=== PATIENT | male | born 1960 | race Caucasian/White ===

== ENCOUNTER 2020-02-13 15:46 | Inpatient (IN) | payer MEDICAID, OTHER ==
[~2020-02-13] VITALS: Ht 175.3 cm; Wt 44.0 kg
--- NOTE | 2020-02-13 16:00 | NUR ---
BIB CARE FLIGHT TRANS FROM [place], CAEHCECTIC, FAILURE TO THRIVE, LOW BP, WOUNDS TO RIGHT ANTERIOR HIP AND RIGHT POSTERIOR HIP WITH WHAT LOOKS TO BE STOOL LIKE DRAINAGE. PT ORIENTED TO PERSON AND FOLLOWS COMMANDS, TEMP 92.4. POOR ORAL HYGENE, TEETH AND LIPS WITH DRIED BLOOD, ORAL CARE COMPLETED AND MOISTURE APPLIED. PT ABLE TO TAKE SMALL SIPS OF WATER. OOZING WOUNDS TO ANTERIOR RLQ ABD, AND POSTERIOR HIP. BOTH WOUNDS ARE FULL THICKNESS AND APPEAR TO BE FISTULAS FROM THE BOWEL THE DRAINAGE IS BOWEL LIKE IN APPEARANCE AND SMELL. PT IS EXTREMELY CAEHCECTIC WITH A LIANG TEMP OF 92.5, BENJY BLANKET IN PLACE BUT PT PULLS IT OFF C/O IT BEING TO HOT. WARM BLANKET PLACED. DR RJOAS AT BEDSIDE. EVEDENTLY THIS PT LIVES BY HIMSELF IN A TRAILER, OFF [place] GRID WITH ONLY A GENERATOR FOR ELECTRICITY. THE PT SAYS THAT HE USES HIS TRUCK TO GO TO THE STORE, BUT IT WOULD APPEAR BY HIS CURRENT STATE THAT HE HAS NOT EATEN IN SME TIME. THE PT STATES THAT HE WENT TO THE STORE "LAST WEEK" DR ROJAS AT BEDSIDE, PT ASSESSMENT REVIEWED, POC DISCUSSED.
[2020-02-13] MEDS ORDERED: SODIUM CHLORIDE FLUSH 10ML SYR IVF ONE (16:30)
[2020-02-13] MEDS ORDERED: PLEASE ENTER ALLERGIES MC SCH (16:30)
[2020-02-13 16:48] LABS: ALANINE AMINOTRANSFERASE 36 U/L (12-78); ALBUMIN 1.4 g/dL (3.4-5.0); ANION GAP 13 mmol/L (5-15); CALCIUM 7.8 mg/dL (8.5-10.1); CHLORIDE 115 mmol/L (98-107); CREATININE 4.71 mg/dL (0.7-1.3)
[2020-02-13] MEDS ORDERED: ALBUMIN HUMAN 25% 100 ML IV ONE (16:50)
[2020-02-13] MEDS ORDERED: MORPHINE SULFATE 4 MG/ML, 1ML ONE (16:51)
[2020-02-13 16:53] LABS: ALKALINE PHOSPHATASE 127 U/L (45-117); BILIRUBIN,TOTAL 0.5 mg/dL (0.2-1.0)
[2020-02-13] MEDS: MORPHINE SULFATE 4 MG/ML, 1ML IVPush PRN ×2 (16:55→17:33)
[2020-02-13] MEDS ORDERED: PLEASE ENTER HEIGHT AND WEIGHT MC SCH (17:00)
--- NOTE | 2020-02-13 17:00 | NUR ---
JAMEL, DR. APARICIO AT BEDSIDE. COMFORT CARE MEASURES DISCUSSED WITH PT AND PT VERBALIZED AGREEMENT AND HIS DESIRE FOR COMFORT CARE MEASURES.
[2020-02-13 17:14] LABS: MEAN CORPUSCULAR VOLUME 71.6 fL (81-97); PLATELET COUNT 148 x10^3/uL (130-400); RED BLOOD COUNT 3.96 x10^6/uL (4.38-5.82); RED CELL DISTRIBUTION WIDTH 34.4 % (9.4-14.8)
[2020-02-13 17:16] LABS: MEAN CORPUSCULAR HGB CONC 29.3 g/dL (33.2-36.2)
--- NOTE | 2020-02-13 17:28 | NUR ---
PATIENTS SON PHONE NUMBER CLAUDIA [phone]. FAMILY FRIEND BRIAN WISDOM MAY ALSO BE REACHED AT THIS NUMBER.
[2020-02-13] MEDS ORDERED: MORPHINE SULFATE 4 MG/ML, 1ML IVPush PRN (17:30)
[2020-02-13] MEDS ORDERED: MORPHINE 30MG/30ML PCA.SYR IV PRN (17:30)
[2020-02-13] MEDS ORDERED: SCOPOLAMINE 1MG PATCH TD PRN (17:30)
[2020-02-13] MEDS ORDERED: LORazepam 2 MG/ML, 1ML IVPush PRN (17:30)
[2020-02-13] MEDS ORDERED: ONDANSETRON 2MG/ML, 2ML IVPush PRN (17:30)
[2020-02-13] MEDS ORDERED: ATROPINE OPHTH SOLN 1%, 5ML PO PRN (17:30)
--- NOTE | 2020-02-13 17:48 | NUR ---
PER INFORMMARILOU ABTAINED FROM SENDING FACILITY. PT'S SON, CLAUDIA JUST TURNED 18YR OLD AND HAD NOT SEEN HIS FATHER IN MANY YEARS. CLAUDIA WENT TO VISIT HIS FATHER TODAY AND FOUND HIM IN HIS CURRENT STATE. CLAUDIA IS THE ONE WHO HAD HIS FATHER GO TO THE HOSPITAL.
[2020-02-13 17:53] VITALS: BP 69/46
[2020-02-13 17:54] LABS: MD YES
[2020-02-13 18:02] LABS: BAND#(MANUAL) 3.56 x10^3/uL; BANDS%(MANUAL) 22 % (0-7); LYMPH#(MANUAL) 0.81 x10^3/uL (1-3.4); LYMPHS% (MANUAL) 5 % (22-44); METAMYELOCYTES# (MANUAL) 0.16 x10^3/uL (0-0); METAMYELOCYTES% (MANUAL) 1 % (0-1); MONOS#(MANUAL) 0.49 x10^3/uL (0.3-2.7); MONOS% (MANUAL) 3 % (2-9); NRBC % (MANUAL) 4 % (0-1); SEG#(MANUAL) 11.18 x10^3/uL (1.8-6.8); SEGS% (MANUAL) 69 % (42-75)
[2020-02-13 18:07] LABS: HYPOCHROMIA 2+; MICROCYTOSIS 2+; OVALOCYTES 1+; TARGET CELLS 1+
[2020-02-13 18:09] LABS: <PLATELET ESTIMATE> ADEQUATE; LARGE PLATELETS 1+; SCHISTOCYTES 1+; SPHEROCYTES 1+
[2020-02-13] MEDS: SODIUM CHLORIDE FLUSH 10ML SYR IVF SCH (22:38)
[2020-02-14] MEDS: SODIUM CHLORIDE FLUSH 10ML SYR IVF SCH (07:48)
== END 2020-02-14 16:46 | disposition expired | DRG 682 ==
LOC: ED 17:08 → EDIP 17:09 → 4NW 18:54
PROVIDERS: ADMIT Family Medicine; ATTEND Family Medicine
DX: N17.9 Acute kidney failure, unspecified (principal); E41 Nutritional marasmus; E46 Unspecified protein-calorie malnutrition; Z68.1 Body mass index [BMI] 19.9 or less, adult; D64.9 Anemia, unspecified; E16.2 Hypoglycemia, unspecified; E86.0 Dehydration; E87.5 Hyperkalemia; F17.200 Nicotine dependence, unspecified, uncomplicated; J98.4 Other disorders of lung; Z51.5 Encounter for palliative care; Z66 Do not resuscitate
CPT/HCPCS: 36415; 80053; 83880; 85025; 96374; 96376; G0378; J2270; J2060